=== PATIENT | male | born 1970 | race Caucasian/White ===

== ENCOUNTER 2019-06-26 10:23 | Outpatient (CLI) | payer OTHER ==
--- NOTE | 2019-06-26 10:58 | RAD ---
XR Lumbar Spine 2 Or 3 View HISTORY: Herniated nucleus pulposus COMPARISON: None. FINDINGS: The lateral views of the lumbar spine in flexion and extension demonstrate no evidence of c ompression fracture or subluxation. No change in alignment is seen on flexion or extension.
== END 2019-06-26 10:24 | disposition home or self-care (01) ==
LOC: NAV RAD 10:23
PROVIDERS: ATTEND Neurological Surgery
DX: M51.26 Other intervertebral disc displacement, lumbar region (principal)
CPT/HCPCS: 72100